=== PATIENT | male | born 1970 | race American Indian/Alaskan Native ===

== ENCOUNTER 2017-04-06 21:53 | Emergency (ER) | payer OTHER ==
--- NOTE | 2017-04-06 21:57 | EDM.PDOC ---
ED HPI GENERAL MEDICAL PROBLEM - General Stated Complaint: JEREMIAS JOHNSTON Time Seen by Provider: 04/06/17 21:53 Source of Information: Reports: Patient, RN Notes Reviewed History Limitations: Reports: No Limitations - History of Present Illness INITIAL COMMENTS - FREE TEXT/NARRATIVE: The patient's states that she and the patient were at a baseball game tonight. The patient went to his car around 18:00 MST. The patient's states that she detected him, but that he did not answer. She called on the telephone, and he answered with slurred speech. The patient's then went out to the car, and found him to be slurring his speech. She states that he was keeping his eyes closed. She drove him home. She states that he needed help to get inside the house secondary to apparent weakness. The patient is diabetic. His blood glucose was checked around 18:30 MST and found to be 220. The patient took his usual insulin. His blood glucose was rechecked around 20:15 MST, and found to be 243. The patient's states that the patient continue to keep his eyes closed, and continued to have slurred speech. At one point he became incoherent, babbling nonsense, therefore she tried to get him to get in their car, however, he became argumentative. She therefore called 911, and the patient was brought by EMS. The patient states "I had a seizure or something". He states that after he went to the car to smoke a cigarette. He developed double vision and difficulty speaking. He states that he did not lose consciousness. He states that he had a similar episode around 1993, following atraumatic brain injury. The patient states that he has a seizure disorder, and is prescribed Dilantin 300 mg TID, but only takes 300 mg QAM. He states that he has been doing this for the past couple of years. He states that he is under increased stress, but denies recent sleep deprivation or alcohol use. The patient is on Eliquis, and has an IVC filter for chronic DVT. - Related Data Allergies Allergy/AdvReac Type Severity Reaction Status Date / Time Penicillins Allergy Swelling Verified 04/06/17 22:11 Home Meds: Home Meds ARIPiprazole [Aripiprazole] 2 mg PO BID 04/06/17 [History] Apixaban [Eliquis] 2.5 mg PO BID 04/06/17 [History] Canagliflozin [Invokana] 300 mg PO DAILY 04/06/17 [History] Cholecalciferol (Vitamin D3) [Vitamin D3] 2,000 units PO DAILY 04/06/17 [History ] Ezetimibe 10 mg PO DAILY 04/06/17 [History] Phenytoin 300 mg PO TID 04/06/17 [History] Venlafaxine HCl [Venlafaxine ER] 150 mg PO DAILY 04/06/17 [History] metFORMIN HCl [Metformin HCl] 1,000 mg PO BID 04/06/17 [History] Past Medical History Cardiovascular History: Reports: High Cholesterol Neurological History: Reports: Brain Injury (1993, causing intracranial hemorrhage that required surgery) Psychiatric History: Reports: Depression Endocrine/Metabolic History: Reports: Diabetes, Type II Hematologic History: Reports: Other (See Below) (Chronic DVT) - Past Surgical History Head Surgeries/Procedures: Reports: Craniotomy (1993, left frontal, with lobectomy) Cardiovascular Surgical History: Reports: Other (See Below) (IVC filter) Social & Family History - Tobacco Use Years of Tobacco use: 33 Packs/Tins Daily: 0.5 - Alcohol Use Alcohol Use History: Yes Alcohol Use Frequency: Rarely - Recreational Drug Use Recreational Drug Use: Yes Drug Use in Last 12 Months: Yes Recreational Drug Type: Reports: Marijuana/Hashish (regularly) - Living Situation & Occupation Living situation: Reports: , with Spouse 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) ED ROS GENERAL - Review of Systems Review Of Systems: See Below Constitutional: Reports: No Symptoms HEENT: Reports: No Symptoms Respiratory: Reports: No Symptoms Cardiovascular: Reports: No Symptoms Endocrine: Reports: No Symptoms GI/Abdominal: Reports: No Symptoms : Reports: No Symptoms Musculoskeletal: Reports: No Symptoms Skin: Reports: No Symptoms Neurological: Reports: No Symptoms Psychiatric: Reports: No Symptoms Hematologic/Lymphatic: Reports: No Symptoms Immunologic: Reports: No Symptoms ED EXAM, NEURO - Physical Exam Exam: See Below Exam Limited By: No Limitations General Appearance: Alert, WD/WN, No Apparent Distress Eye Exam: Bilateral Eye: Normal Inspection Ears: Normal External Exam, Hearing Grossly Normal Nose: Normal Inspection, No Blood Throat/Mouth: Normal Inspection, Normal Lips, Normal Voice, No Airway Compromise Head Exam: Other (Left frontal scarring) Neck: Normal Inspection, Full Range of Motion Respiratory/Chest: No Respiratory Distress, No Accessory Muscle Use, Chest Non- Tender, Rhonchi (throughout) Cardiovascular: Normal Peripheral Pulses, Regular Rate, Rhythm, No Gallop, No JVD, No Murmur, No Rub GI/Abdominal: Normal Bowel Sounds, Soft, Non-Tender, No Organomegaly, No Distention, No Abnormal Bruit, No Mass (Male) Exam: Deferred Rectal (Males) Exam: Deferred Neurological: Alert, Normal Dorsiflexion, CN II-XII Intact, Normal Plantar Flexion, No Motor/Sensory Deficits, Oriented x 3 Back Exam: Normal Inspection, Full Range of Motion, NT Extremities: Normal Inspection, Normal Range of Motion, No Pedal Edema, Normal Capillary Refill Psychiatric: Normal Affect Skin Exam: Warm, Dry, Intact, Normal Color, No Rash EKG INTERPRETATION EKG Date: 04/06/17 Time: 22:04 Rhythm: NSR Rate (Beats/Min): 70 [place]: Normal P-Wave: Present QRS: Normal ST-T: Elevated (J-point elevation in inferior leads. No ischemic changes.) QT: Normal Comparison: NA - No Prior EKG Course - Vital Signs Last Recorded V/S: Last Vital Signs Temp 36.1 C 04/06/17 22:05 Pulse 77 04/06/17 22:05 Resp 25 H 04/06/17 22:05 BP 129/61 04/06/17 22:05 Pulse Ox 97 04/06/17 22:05 - Orders/Labs/Meds Orders: Active Orders 24 hr Category Date Time Status Accu Check [Blood Glucose Check, Bedside] [RC] ONETIME Care 04/06/17 22:14 Active EKG Documentation Completion [RC] STAT Care 04/06/17 22:13 Active Head wo Cont [CT] Stat Exams 04/06/17 21:55 Taken Labs: Laboratory Tests 04/06/17 04/06/17 04/06/17 Range/Units 22:04 22:04 22:04 WBC 8.07 (4.23-9.07) K/mm3 RBC 4.09 L (4.63-6.08) M/mm3 Hgb 12.2 L (13.7-17.5) gm/L Hct 36.5 L (40.1-51.0) % MCV 89.2 (79.0-92.2) fl MCH 29.8 (25.7-32.2) pg MCHC 33.4 (32.2-35.5) g/dl RDW Std Deviation 44.8 H (35.1-43.9) fL Plt Count 289 (163-337) K/mm3 MPV 9.5 (9.4-12.3) fl Neutrophils % (Manual) 64 H (40-60) % Band Neutrophils % 0 (0-10) % Lymphocytes % (Manual) 28 (20-40) % Atypical Lymphs % 0 % Monocytes % (Manual) 6 (2-10) % Eosinophils % (Manual) 2 (0.8-7.0) % Basophils % (Manual) 0 L (0.2-1.2) Platelet Estimate Adequate Plt Morphology Comment Normal RBC Morph Comment Normal PT 9.3 (8.0-13.0) SECONDS INR 0.86 APTT 24 (22-36) SECONDS Sodium 139 (136-145) mEq/L Potassium 4.2 (3.5-5.1) mEq/L Chloride 105 (98-107) mEq/L Carbon Dioxide 25 (21-32) mEq/L Anion Gap 13.2 (5-15) BUN 23 H (7-18) mg/dL Creatinine 0.9 (0.7-1.3) mg/dL Est Cr Clr Drug Dosing 102.52 mL/min Estimated GFR (MDRD) > 60 (>60) mL/min BUN/Creatinine Ratio 25.6 H (14-18) Glucose 171 H (74-106) mg/dL Calcium 9.6 (8.5-10.1) mg/dL Magnesium 2.0 (1.8-2.4) mg/dl Total Bilirubin 0.2 (0.2-1.0) mg/dL AST 13 L (15-37) U/L ALT 25 (16-63) U/L Alkaline Phosphatase 105 (46-116) U/L Creatine Kinase (39-308) U/L Troponin I < 0.017 (0.00-0.056) ng/mL Total Protein 6.3 L (6.4-8.2) g/dl Albumin 3.3 L (3.4-5.0) g/dl Globulin 3.0 gm/dL Albumin/Globulin Ratio 1.1 (1-2) TSH 3rd Generation 1.713 (0.358-3.74) uIU/mL Urine Opiates Screen (NEGATIVE) Ur Buprenorphine Scrn (NEGATIVE) Ur Oxycodone Screen (NEGATIVE) Urine Methadone Screen (NEGATIVE) Ur Propoxyphene Screen (NEGATIVE) Ur Barbiturates Screen (NEGATIVE) Phenytoin 1.8 L (10.0-20.0) ug/mL Ur Tricyclics Screen (NEGATIVE) Ur Phencyclidine Scrn (NEGATIVE) Ur Amphetamine Screen (NEGATIVE) U Methamphetamines Scrn (NEGATIVE) U Benzodiazepines Scrn (NEGATIVE) U Cocaine Metab Screen (NEGATIVE) U Marijuana (THC) Screen (NEGATIVE) Ethyl Alcohol 0.00 (0.00) gm% 04/06/17 04/06/17 Range/Units 22:04 22:30 WBC (4.23-9.07) K/mm3 RBC (4.63-6.08) M/mm3 Hgb (13.7-17.5) gm/L Hct (40.1-51.0) % MCV (79.0-92.2) fl MCH (25.7-32.2) pg MCHC (32.2-35.5) g/dl RDW Std Deviation (35.1-43.9) fL Plt Count (163-337) K/mm3 MPV (9.4-12.3) fl Neutrophils % (Manual) (40-60) % Band Neutrophils % (0-10) % Lymphocytes % (Manual) (20-40) % Atypical Lymphs % % Monocytes % (Manual) (2-10) % Eosinophils % (Manual) (0.8-7.0) % Basophils % (Manual) (0.2-1.2) Platelet Estimate Plt Morphology Comment RBC Morph Comment PT (8.0-13.0) SECONDS INR APTT (22-36) SECONDS Sodium (136-145) mEq/L Potassium (3.5-5.1) mEq/L Chloride (98-107) mEq/L Carbon Dioxide (21-32) mEq/L Anion Gap (5-15) BUN (7-18) mg/dL Creatinine (0.7-1.3) mg/dL Est Cr Clr Drug Dosing mL/min Estimated GFR (MDRD) (>60) mL/min BUN/Creatinine Ratio (14-18) Glucose (74-106) mg/dL Calcium (8.5-10.1) mg/dL Magnesium (1.8-2.4) mg/dl Total Bilirubin (0.2-1.0) mg/dL AST (15-37) U/L ALT (16-63) U/L Alkaline Phosphatase (46-116) U/L Creatine Kinase 52 (39-308) U/L Troponin I (0.00-0.056) ng/mL Total Protein (6.4-8.2) g/dl Albumin (3.4-5.0) g/dl Globulin gm/dL Albumin/Globulin Ratio (1-2) TSH 3rd Generation (0.358-3.74) uIU/mL Urine Opiates Screen Negative (NEGATIVE) Ur Buprenorphine Scrn Negative (NEGATIVE) Ur Oxycodone Screen Negative (NEGATIVE) Urine Methadone Screen Negative (NEGATIVE) Ur Propoxyphene Screen Negative (NEGATIVE) Ur Barbiturates Screen Presumptive positive H (NEGATIVE) Phenytoin (10.0-20.0) ug/mL Ur Tricyclics Screen Negative (NEGATIVE) Ur Phencyclidine Scrn Negative (NEGATIVE) Ur Amphetamine Screen Negative (NEGATIVE) U Methamphetamines Scrn Negative (NEGATIVE) U Benzodiazepines Scrn Negative (NEGATIVE) U Cocaine Metab Screen Negative (NEGATIVE) U Marijuana (THC) Screen Presumptive positive H (NEGATIVE) Ethyl Alcohol (0.00) gm% Meds: Medications Discontinued Medications Generic Name Dose Route Start Last Admin Trade Name Freq PRN Reason Stop Dose Admin Phenytoin Sodium 300 mg 04/06/17 23:29 Phenytoin PO 04/06/17 23:30 ONETIME STA - Re-Assessments/Exams Free Text/Narrative Re-Assessment/Exam: 04/06/17 22:26 CT of the head without contrast is read by virtual radiology as: 1. Encephalomalacia in the left frontal lobe compatible with the patient's history of head trauma. 2. Chronic sinus disease in the left ethmoid sinus. 3. No sign of acute stroke. 04/06/17 22:27 At present, the patient's neurologic examination is entirely normal. The patient believes that he suffered a seizure, and I am inclined to agree with him. Even if his symptoms were due to a TIA, his neurologic symptoms have entirely resolved, therefore a thrombolytic is not indicated. 04/06/17 23:43 Test results discussed with the patient and his . The patient's Dilantin level is subtherapeutic at 1.8. The remainder of his workup is unremarkable. As above, I suspect that the patient suffered a seizure. The patient has his medications, including his Dilantin, here in the ED. I will have him take 300 mg now, then start taking 300 mg TID, as prescribed, starting tomorrow morning. I do not see an indication to admit the patient to the hospital. The patient's asked what can be done if the patient has another seizure. I recommended that she not try to force anything into his mouth, and call 911 if he turns cyanotic, or if the seizure lasts beyond a few minutes. We discussed the option of prescribed Valium, however, the patient's is not comfortable with either injections or rectal dosing. Departure - Departure Time of Disposition: 23:45 Disposition: Home, Self-Care 01 Condition: Good Clinical Impression: Epileptic seizure - Discharge Information Instructions: Seizure, Adult, [id number] Referrals: PCP,None [Primary Care Provider] - Forms: ED Department Discharge Additional Instructions: You were seen in the emergency room after your speech became slurred. Workup in the ER included blood work, a urine drug screen, an ECG, and a CT scan of your head. Your Dilantin level returned very low at 1.8. A therapeutic level is between 10 and 20. This is because you are not taking your Dilantin as prescribed. You are SUPPOSED to take 3 tablets, 3 times a day. You have been taking 3 tablets only once a day. You were given a 300 mg dose in the ED. Start taking your Dilantin 3 tablets, 3 times a day, starting tomorrow, , 04/07/2016. We strongly recommend that you notify the office of Dr. Barron of your ER visit. If any other problems, please do not hesitate to return to the ER. - My Orders Last 24 Hours: My Active Orders 04/06/17 21:55 Head wo Cont [CT] Stat 04/06/17 22:13 EKG Documentation Completion [RC] STAT 04/06/17 22:14 Accu Check [Blood Glucose Check, Bedside] [RC] ONETIME - Assessment/Plan Last 24 Hours: My Active Orders 04/06/17 21:55 Head wo Cont [CT] Stat 04/06/17 22:13 EKG Documentation Completion [RC] STAT 04/06/17 22:14 Accu Check [Blood Glucose Check, Bedside] [RC] ONETIME
[2017-04-06] MEDS ORDERED: Phenytoin 100 MG Cap.ER PO STA (23:29)
--- NOTE | 2017-04-07 07:14 | CT ---
Head CT Technique: Multiple axial sections through the brain were obtained. Intravenous contrast was not utilized. Comparison: No previous intracranial imaging is available. Findings: Encephalomalacia is identified within the left frontal lobe. Dystrophic calcification is seen within this area with ex vacuole enlargement of the frontal horn of the lateral ventricle. Previous left-sided craniotomy is also noted. Other ventricles along with basal cisterns and sulci over the convexities are within normal limits. No other abnormal parenchymal densities are seen. No evidence of intracranial hemorrhage. No midline shift or mass effect is seen. Atherosclerotic calcification is noted within the carotid siphon. Mild mucosal thickening is noted within the ethmoid sinuses and left frontal sinus. Impression: 1. Encephalomalacia and other chronic findings within the left frontal region as described above. 2. Mild sinus findings which are likely pre-existing and incidental. 3. No acute intracranial abnormality is identified. Diagnostic code #3 Agree with preliminary report issued by [employer] ([employer] preliminary report dictated on 04/06/17, 11:18 PMCentral Time)
== END 2017-04-06 23:58 | disposition home or self-care (01) ==
LOC: JD.ED 21:53
DX: G40.909 Epilepsy, unspecified, not intractable, without status epilepticus (principal); E11.9 Type 2 diabetes mellitus without complications; Z88.0 Allergy status to penicillin; Z79.84 Long term (current) use of oral hypoglycemic drugs; Z79.899 Other long term (current) drug therapy; F17.210 Nicotine dependence, cigarettes, uncomplicated
CPT/HCPCS: 36415; 70450; 80053; 80185; 80306; 82550; 82962; 83735; 84443; 84484; 85025; 85610; 85730; 93005; 99285; G0480; 93010

== ENCOUNTER 2017-04-12 09:50 | Emergency (ER) | payer OTHER ==
--- NOTE | 2017-04-12 10:12 | EDM.PDOC ---
ED HPI GENERAL MEDICAL PROBLEM - General Chief Complaint: Neuro Symptoms/Deficits Stated Complaint: [facility] Time Seen by Provider: 04/12/17 10:00 Source of Information: Reports: Patient History Limitations: Reports: No Limitations - History of Present Illness INITIAL COMMENTS - FREE TEXT/NARRATIVE: 47-year-old male attends the ED per [facility] because of ataxia. He appreciates that his gait is off and he is listing towards the right side when walking. He states symptoms developed over a week ago and he was seen through the ED and worked up for stroke at that time. I do not have access to that chart at this time. He states symptoms seem to be worse the last 2 days but has been ataxic since she was seen last week. He denies any vertigo symptoms. He is also an insulin-dependent diabetic and blood sugars were identified by paramedics to be low this morning initial was 80 and it went down to as low as 40 he was given pretzels and dextrose orally and sugar is 90 on their last assessment before arriving in the ED. he does have a mild headache. There's been no nausea or vomiting. Onset: Gradual Onset Date: 04/05/17 (Symptoms started a week ago.) Duration: Day(s): Location: Reports: Generalized (Feeling off balance and walking like a drunk.) Quality: Reports: Other (Off balance with gait.) Severity: Moderate Improves with: Reports: None Worsens with: Reports: None Context: Denies: Activity, Exercise, Lifting, Sick Contact, Trauma, Other Associated Symptoms: Reports: Headaches, Malaise. Denies: Confusion, Chest Pain , Cough, cough w sputum, Diaphoresis (Perhaps a little more tired than normal.) , Fever/Chills, Loss of Appetite, Nausea/Vomiting, Rash, Seizure, Shortness of Breath, Syncope, Weakness Treatments [employer]: Reports: Other (see below) (1.) - Related Data Allergies Allergy/AdvReac Type Severity Reaction Status Date / Time Penicillins Allergy Swelling Verified 04/12/17 09:58 Home Meds: Home Meds ARIPiprazole [Aripiprazole] 2 mg PO BID 04/06/17 [History] Apixaban [Eliquis] 2.5 mg PO BID 04/06/17 [History] Canagliflozin [Invokana] 300 mg PO DAILY 04/06/17 [History] Cholecalciferol (Vitamin D3) [Vitamin D3] 2,000 units PO DAILY 04/06/17 [History ] Ezetimibe 10 mg PO DAILY 04/06/17 [History] Phenytoin 300 mg PO TID 04/06/17 [History] Venlafaxine HCl [Venlafaxine ER] 150 mg PO DAILY 04/06/17 [History] metFORMIN HCl [Metformin HCl] 1,000 mg PO BID 04/06/17 [History] Aspirin [Halfprin] 162 mg PO BRK #90 tab.ec 04/12/17 [Rx] Past Medical History Cardiovascular History: Reports: High Cholesterol Other Cardiovascular History: DVT Neurological History: Reports: Brain Injury (1993, causing intracranial hemorrhage that required surgery. Had a craniotomy for removal of the subdural.) , Head Trauma, Seizure (Patient has been on Dilantin for many years in spite of apparently never having a seizure post closed head injury and subdural drainage. 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 He is to be on warfarin and currently he is on Eliquis to 2.5 mg twice a day) - Past Surgical History Head Surgeries/Procedures: Reports: Craniotomy (1993, left frontal, with lobectomy) Cardiovascular Surgical History: Reports: Other (See Below) (IVC filter) Social & Family History - Tobacco Use Smoking Status *Q: Current Every Day Smoker Years of Tobacco use: 33 Packs/Tins Daily: 0.5 - Caffeine Use Caffeine Use: Reports: Energy Drinks Other Caffeine Use: 3 energy drinks per day - Recreational Drug Use Recreational Drug Use: Yes Drug Use in Last 12 Months: Yes Recreational Drug Type: Reports: Marijuana/Hashish (regularly) Other Recreational Drug Type: about once per week - Living Situation & Occupation Living situation: Reports: , with Spouse 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 Denies: Fever, Chills, Decreased Appetite, Weight Loss HEENT: Reports: No Symptoms. Denies: Vertigo Respiratory: Reports: No Symptoms Cardiovascular: Reports: No Symptoms Endocrine: Reports: Fatigue, Low Glucose (As had several low blood sugars recently.) GI/Abdominal: Reports: No Symptoms : Reports: Frequency Musculoskeletal: Reports: Neck Pain Skin: Reports: Bruising (Bruises easy. He is on Eliquis.) Neurological: Reports: Headache, Difficulty Walking (For the last week.), Gait Disturbance. Denies: Confusion, Dizziness, Numbness, Paresthesia, Pre-Existing Deficit, Seizure, Syncope, Tingling (Mild), Tremors, Trouble Speaking, Weakness , Other Psychiatric: Reports: No Symptoms (Walks offkilter lists to the right side) Hematologic/Lymphatic: Reports: No Symptoms Immunologic: Reports: No Symptoms ED EXAM, NEURO - Physical Exam Exam: See Below Exam Limited By: No Limitations General Appearance: Alert, WD/WN, No Apparent Distress, Other (Able to provide a useful history.) Eye Exam: Bilateral Eye: Normal Fundi, Normal Inspection, PERRL (No nystagmus.) Ears: Normal External Exam Nose: Normal Inspection Throat/Mouth: Normal Inspection, Normal Lips, Normal Teeth Head Exam: Atraumatic, Other (Palpable defect left frontal temporal lobe from previous craniotomy. Has a scar in his left mid forehead from previous trauma.) Neck: Normal Inspection, Supple, Non-Tender, Full Range of Motion. No: Lymphadenopathy (L), Lymphadenopathy (R) Respiratory/Chest: No Respiratory Distress, Lungs Clear, Normal Breath Sounds, No Accessory Muscle Use Cardiovascular: Normal Peripheral Pulses, Regular Rate, Rhythm, No Edema, No Gallop, No Murmur, No Rub GI/Abdominal: Normal Bowel Sounds, Soft, Non-Tender, No Organomegaly (Male) Exam: No Hernia Neurological: Alert, Normal Mood/Affect, Normal Dorsiflexion, CN II-XII Intact, Normal Plantar Flexion, Oriented x 3, Other (Patient is definitely ataxic on walking he's lists towards the right side substantially. He had a negative Romberg sign. There was no pronator drift. He is slightly ataxic on heel-to- wilson assessment on the left side.). No: Normal Gait, Normal Reflexes, Abnormal Finger to Nose, Abnormal Light Touch, Abnormal Motor, Babinski, Straight Leg Raise (L) DTR: 0: Patella (R), Patella (L), Achilles (R), Achilles (L), 1+: Bicep (R), Bicep (L) Back Exam: Normal Inspection, Full Range of Motion. No: CVA Tenderness (L), CVA Tenderness (R) Extremities: Normal Inspection, Normal Range of Motion, Non-Tender, No Pedal Edema Psychiatric: Normal Affect, Normal Mood Skin Exam: Warm, Dry, Intact, Normal Color, No Rash EKG INTERPRETATION EKG Date: 04/12/17 Time: 10:15 Rhythm: NSR Rate (Beats/Min): 70 Voca: RAD-Right Voca Deviation (Borderline right axis deviation) P-Wave: Present QRS: Other (There is Q waves V1 to V3 compatible with an old anteroseptal myocardial infarction. There are also Q waves in 3 and aVF suggesting an old inferior wall myocardial infarction.) ST-T: Other (T-wave inversion aVL which is nonspecific.) QT: Prolonged (QT is mildly prolonged.) EKG Interpretation Comments: Abnormal ECG Course - Vital Signs Last Recorded V/S: Last Vital Signs Temp 36.1 C 04/12/17 10:00 Pulse 68 04/12/17 10:00 Resp 18 04/12/17 10:00 BP 129/65 04/12/17 10:00 Pulse Ox 99 04/12/17 10:00 - Orders/Labs/Meds Labs: Laboratory Tests 04/12/17 04/12/17 04/12/17 Range/Units 09:55 09:55 09:55 WBC 7.35 (4.23-9.07) K/mm3 RBC 4.35 L (4.63-6.08) M/mm3 Hgb 13.0 L (13.7-17.5) gm/L Hct 38.6 L (40.1-51.0) % MCV 88.7 (79.0-92.2) fl MCH 29.9 (25.7-32.2) pg MCHC 33.7 (32.2-35.5) g/dl RDW Std Deviation 44.4 H (35.1-43.9) fL Plt Count 308 (163-337) K/mm3 MPV 9.2 L (9.4-12.3) fl Neutrophils % (Manual) 66 H (40-60) % Band Neutrophils % 0 (0-10) % Lymphocytes % (Manual) 31 (20-40) % Atypical Lymphs % 0 % Monocytes % (Manual) 2 (2-10) % Eosinophils % (Manual) 1 (0.8-7.0) % Basophils % (Manual) 0 L (0.2-1.2) Platelet Estimate Decreased RBC Morph Comment Normal PT 10.0 (8.0-13.0) SECONDS INR 0.92 APTT (22-36) SECONDS Sodium 138 (136-145) mEq/L Potassium 3.9 (3.5-5.1) mEq/L Chloride 104 (98-107) mEq/L Carbon Dioxide 24 (21-32) mEq/L Anion Gap 13.9 (5-15) BUN 12 (7-18) mg/dL Creatinine 0.7 (0.7-1.3) mg/dL Est Cr Clr Drug Dosing TNP Estimated GFR (MDRD) > 60 (>60) mL/min BUN/Creatinine Ratio 17.1 (14-18) Glucose 95 (74-106) mg/dL Calcium 9.3 (8.5-10.1) mg/dL Total Bilirubin 0.2 (0.2-1.0) mg/dL AST 13 L (15-37) U/L ALT 21 (16-63) U/L Alkaline Phosphatase 121 H (46-116) U/L Troponin I < 0.017 (0.00-0.056) ng/mL C-Reactive Protein 3.4 H* (<1.0) mg/dL Total Protein 6.6 (6.4-8.2) g/dl Albumin 3.5 (3.4-5.0) g/dl Globulin 3.1 gm/dL Albumin/Globulin Ratio 1.1 (1-2) Urine Color (Yellow) Urine Appearance (Clear) Urine pH (5.0-8.0) Ur Specific Edwards (1.005-1.030) Urine Protein (Negative) Urine Glucose (UA) (Negative) Urine Ketones (Negative) Urine Occult Blood (Negative) Urine Nitrite (Negative) Urine Bilirubin (Negative) Urine Urobilinogen (0.2-1.0) Ur Leukocyte Esterase (Negative) Urine RBC (0-5) /hpf Urine WBC (0-5) /hpf Ur Epithelial Cells (0-5) /hpf Urine Bacteria (FEW) /hpf Urine Mucus (FEW) /hpf Phenytoin (10.0-20.0) ug/mL 04/12/17 04/12/17 04/12/17 Range/Units 09:55 09:55 12:15 WBC (4.23-9.07) K/mm3 RBC (4.63-6.08) M/mm3 Hgb (13.7-17.5) gm/L Hct (40.1-51.0) % MCV (79.0-92.2) fl MCH (25.7-32.2) pg MCHC (32.2-35.5) g/dl RDW Std Deviation (35.1-43.9) fL Plt Count (163-337) K/mm3 MPV (9.4-12.3) fl Neutrophils % (Manual) (40-60) % Band Neutrophils % (0-10) % Lymphocytes % (Manual) (20-40) % Atypical Lymphs % % Monocytes % (Manual) (2-10) % Eosinophils % (Manual) (0.8-7.0) % Basophils % (Manual) (0.2-1.2) Platelet Estimate RBC Morph Comment PT (8.0-13.0) SECONDS INR APTT 27 (22-36) SECONDS Sodium (136-145) mEq/L Potassium (3.5-5.1) mEq/L Chloride (98-107) mEq/L Carbon Dioxide (21-32) mEq/L Anion Gap (5-15) BUN (7-18) mg/dL Creatinine (0.7-1.3) mg/dL Est Cr Clr Drug Dosing Estimated GFR (MDRD) (>60) mL/min BUN/Creatinine Ratio (14-18) Glucose (74-106) mg/dL Calcium (8.5-10.1) mg/dL Total Bilirubin (0.2-1.0) mg/dL AST (15-37) U/L ALT (16-63) U/L Alkaline Phosphatase (46-116) U/L Troponin I (0.00-0.056) ng/mL C-Reactive Protein (<1.0) mg/dL Total Protein (6.4-8.2) g/dl Albumin (3.4-5.0) g/dl Globulin gm/dL Albumin/Globulin Ratio (1-2) Urine Color Yellow (Yellow) Urine Appearance Clear (Clear) Urine pH 6.0 (5.0-8.0) Ur Specific Edwards 1.025 (1.005-1.030) Urine Protein Negative (Negative) Urine Glucose (UA) 2+ H (Negative) Urine Ketones 1+ H (Negative) Urine Occult Blood Trace-lysed H (Negative) Urine Nitrite Negative (Negative) Urine Bilirubin 1+ H (Negative) Urine Urobilinogen 0.2 (0.2-1.0) Ur Leukocyte Esterase Negative (Negative) Urine RBC 0-5 (0-5) /hpf Urine WBC 0-5 (0-5) /hpf Ur Epithelial Cells 0-5 (0-5) /hpf Urine Bacteria Rare (FEW) /hpf Urine Mucus Few (FEW) /hpf Phenytoin 3.8 L (10.0-20.0) ug/mL Meds: Medications Discontinued Medications Generic Name Dose Route Start Last Admin Trade Name Freq PRN Reason Stop Dose Admin Aspirin 162 mg 04/12/17 12:44 04/12/17 13:02 Halfprin PO 04/12/17 12:45 Not Given ONETIME ONE Aspirin Confirm 04/12/17 12:57 04/12/17 13:02 Aspirin Administered 04/12/17 12:58 Not Given Dose 162 mg .ROUTE .STK-MED ONE Aspirin 162 mg 04/12/17 12:58 04/12/17 13:01 Aspirin PO 04/12/17 12:59 162 mg ONETIME ONE Administration Dextrose/Sodium Chloride 1,000 mls @ 100 mls/hr 04/12/17 10:30 04/12/17 10:34 Dextrose 5%-Normal Saline IV 100 mls/hr ASDIRECTED KAM Administration - Radiology Interpretation Free Text/Narrative:: 47-year-old male presents to the ED per ambulance from [facility]. Patient states that he is off balance when he tries to walk. He has no vertigo symptoms but when he attempts to walk he is staggering and lists towards the right side. He' s banging into jimenez and door jams etc. Symptoms started a week ago when he was seen and assessed in the ED and worked up for stroke with a negative CT. States his symptoms of gradually worsened over the last week and were much worse this morning. This is complicated by the fact that he also had a low blood sugar this morning. He is an insulin-dependent diabetic for many years. He did take his insulin this morning without checking his blood sugar today begin with. Paramedics identified initial blood sugar of 80 and then it went down to as low as 40 on recheck. He was given pretzels and glucose orally. Last blood sugar before they entered the ED was 90. He has taken his morning dose of insulin 25 units but has not had breakfast yet. His neuro exam otherwise is completely normal with mild left-sided [id number] ataxia but marked ataxia when we try to get him up and walk. He is staggering listing to the right side. - Re-Assessments/Exams Free Text/Narrative Re-Assessment/Exam: 04/12/17 10:53 CT head is reported as unchanged from last week. He has encephalomalacia within the left frontal lobe with dystrophic calcification in this area. Findings appear chronic as there is an ex vacuo enlargement of the frontal horn of the lateral ventricle on that side prior left-sided craniotomy is appreciated. There is no evidence of intracranial hemorrhage or mass effect or any midline shift. There is atherosclerotic sedation patient was in the carotid siphon. Mucosal thickening is noted within portions of the ethmoid sinuses which appears chronic. 04/12/17 11:20 patient this time is feeling much improved. He's ready to go home. I have ordered an MRI which will be done about 11:30 this morning to establish for for sure whether or not he has had a cerebellar infarct is clinically this is what it suggests. It's unclear how much Dilantin is taking but it sounds likes up to 600 mg a day and this could be causing some Dilantin toxicity and contributing to ataxia and therefore I did order serum Dilantin level. 04/12/17 11:22 Labs reveal a normal white count at 7.35. Hemoglobin is 13.0 with hematocrit of 38.6. Platelet count is 308,000. PT is 10.0 INR 0.92. PTT is 27. Sodium is 138 potassium 3.9. Chloride 104 bicarbonate 24. And a gap is 13.9 BUN is 12. Creatinine is 0.7. His EGFR is greater than 60. Glucose was 95 in the lab calcium 9.3 AST is 13 ALT 21 alk phosphatase slightly elevated at 121. Troponin I is less than 0.017. C-reactive protein is 3.4. The reason for this is unclear I therefore ordered a chest x-ray and a urinalysis. 04/12/17 11:39 chest x-ray reveals a elevated right lateral leaflet of the diaphragm likely due to paralysis. Visualized portions the lungs appear to be within normal limits. 04/12/17 12:06 Dilantin level is 3.8 which is subtherapeutic and therefore not the cause of any ataxia. 04/12/17 12:47 MRI of his brain reveals an acute diffusion abnormality in the left side of the flip which would correlate with his symptoms of ataxia. This appears to be a recent infarct. The flip is supplied by very small vessels and is therefore not indicative of a very macrovascular problem but more microvascular related to his diabetes. Patient feels much improved although his ataxia symptoms are likely to persist and perhaps mildly improve over the next several weeks. Himself and 2 of his family members who are with him were counseled in regards to the findings. He wants to leave the hospital as quickly as possible and was not interested in any form of rehabilitation or physiotherapy mostly because of where he lives. I spoke with neurologist on- call at [facility] in [facility] and he agreed that even if the patient is on aliquots as he could tolerate low-dose aspirin as well in an effort to prevent further infarction. However further investigations were not felt to be warranted. At this time I will place him on Halfprin 162 mg once daily. Departure - Departure Time of Disposition: 12:44 Disposition: Home, Self-Care 01 Condition: Fair Clinical Impression: CVA, old, ataxia, Brainstem infarction - Discharge Information Prescriptions: Aspirin [Halfprin] 162 mg PO BRK #90 tab.ec Instructions: Stroke Prevention, [id number] Referrals: PCP,None [Primary Care Provider] - Forms: ED Department Discharge Additional Instructions: Evaluation the emergency room today in regards to continued feeling of being off balance with staggering gait to the right side with walking. Symptoms have been present for the last week. Clinically her neuro exam was otherwise normal other than slight ataxia on left [id number] exam. CT scan of the brain was unchanged as compared to the examination that was done a week ago. Therefore MRI of the brain was carried out and it confirms that there is been a stroke involving the brainstem called the flip on the left side. This appears to be fairly recent which would be within the last week. This is a small vessel infarct and is likely secondary to your diabetes over the years. The only treatment we have to offer for this is to be on a aspirin and I would suggest Halfprin which is aspirin 162 mg daily. This will hopefully prevent further strokes from occurring. You do need further investigations carried out with your doctor with ultrasound of your carotid arteries echocardiogram of your heart and probably MRA or CTA to look at the blood vessels in the head and neck to see if there is anything else that we can do to prevent a major stroke from occurring in the future. Follow-up with her personal care physician within the next week.
--- NOTE | 2017-04-12 10:26 | CT ---
Head CT Technique: Multiple axial sections through the brain were obtained. Intravenous contrast was not utilized. Comparison: Prior head CT exam of 04/06/17. Findings: Encephalomalacia is seen within the left frontal lobe. Dystrophic calcification is seen in this area. Finding appears chronic as there is ex vacuole enlargement of the frontal horn of the lateral ventricle. Prior left-sided craniotomy is noted. No other abnormal parenchymal densities are seen. No evidence of intracranial hemorrhage. No midline shift or mass effect is seen. Atherosclerotic calcification is seen within the carotid siphon. Mucosal thickening is noted within portions of the ethmoid sinuses. No acute calvarial abnormality is seen. Impression: 1. Chronic change within the left frontal lobe as described above. 2. Sinus disease which is stable from previous head CT and felt to be chronic. 3. Nothing acute is appreciated. No appreciable change from prior head CT exam. Please correlate if patient's symptoms warrant further evaluation by MRI. Diagnostic code #3
[2017-04-12] MEDS ORDERED: Dextrose 5%-0.9% NaCl 1,000 ML IV SCH (10:30)
--- NOTE | 2017-04-12 12:24 | MR ---
MRI brain Technique: T1 sagittal; T2, T2 FLAIR, diffusion and T1 axial Comparison: Previous head CT study performed earlier on the same day. Findings: Stable encephalomalacia within the left frontal lobe with ex vacuole enlargement of the frontal horn of the lateral left ventricle. Mucosal thickening is again seen within the ethmoid sinuses. Minimal increased signal is seen within the periventricular white matter within the frontal region. Mild areas of increased signal are seen within the flip. Area of increased signal within the flip correlates to acute diffusion abnormalities compatible with fairly recent small infarcts. No other acute diffusion abnormalities are seen. No midline shift or mass effect is seen. Impression: 1. Areas of acute diffusion abnormality within the flip more prominent on the left side. These correlate to mild areas of increased signal on the T2 FLAIR sequence and are felt compatible with fairly recent brainstem infarcts. 2. Stable area of encephalomalacia within the left frontal region and other incidental findings which are stable. Diagnostic code #3
[2017-04-12] MEDS ORDERED: Aspirin 81 MG Tab.EC PO ONE (12:44)
[2017-04-12] MEDS ORDERED: Aspirin 81 MG Tab.Chew ONE (12:57)
[2017-04-12] MEDS ORDERED: Aspirin 81 MG Tab.Chew PO ONE (12:58)
--- NOTE | 2017-04-12 14:02 | CR ---
Chest: Portable view of the chest was obtained. Comparison: No prior chest x-ray. Pleural thickening is seen along the right lower chest and right costophrenic angle which is most likely chronic. Lungs otherwise are clear. Heart size and mediastinum are normal. Several old right-sided rib fractures are seen which appear healed. Old left clavicle fracture is seen which is healed. Old fracture noted within the right scapula. Impression: 1. Pleural thickening which is felt to be chronic within the right lower chest and lateral costophrenic angle. This occurs in an area of old healed rib fractures. Other old fractures as noted above. 2. Nothing acute is appreciated on frontal chest x-ray. Diagnostic code #2
== END 2017-04-12 13:03 | disposition home or self-care (01) ==
LOC: JD.ED 09:50
DX: R27.0 Ataxia, unspecified (principal); E11.9 Type 2 diabetes mellitus without complications; F17.210 Nicotine dependence, cigarettes, uncomplicated; E78.00 Pure hypercholesterolemia, unspecified; Z88.0 Allergy status to penicillin; Z79.899 Other long term (current) drug therapy; Z79.82 Long term (current) use of aspirin; Z79.84 Long term (current) use of oral hypoglycemic drugs; Z86.73 Personal history of transient ischemic attack (TIA), and cerebral infarction without residual deficits
CPT/HCPCS: 36415; 70450; 70551; 71010; 80053; 80185; 81001; 84484; 85025; 85610; 85730; 86140; 93005; 96360; 96361; 99285; A9270; J7042; 93010; 99283-25

== ENCOUNTER 2017-05-01 11:56 | Emergency (ER) | payer OTHER ==
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
[2017-05-01] MEDS ORDERED: Sodium Chloride 0.9% 1,000 ML IV SCH (12:30)
[2017-05-01] MEDS ORDERED: Midazolam 1 MG/ML 2 ML SDV IM ONE (15:12)
--- NOTE | 2017-05-01 16:06 | CT ---
Head CT Technique: Multiple axial sections through the brain were obtained. Intravenous contrast was not utilized. Comparison: Prior MRI brain dated 04/12/[address] study dated 04/12/17. Findings: Area of encephalomalacia is seen within the left frontal lobe which appears stable. Dystrophic calcification is seen which is stable. No other abnormal parenchymal densities are seen. No evidence of intracranial hemorrhage. Ex vacuole enlargement is noted of the lateral ventricle within the left frontal horn. No midline shift is seen. Previous craniotomy is noted. Atherosclerotic calcification is seen within the vertebral vessels and carotid siphon. Mucosal thickening is noted within the ethmoid and frontal sinus on both sides. No acute calvarial abnormality is seen. Impression: 1. Findings as noted above. No significant change is seen from prior intracranial imaging. Diagnostic code #3
== END 2017-05-01 16:50 ==
LOC: JD.ED 11:56
DX: I69.993 Ataxia following unspecified cerebrovascular disease (principal); N39.42 Incontinence without sensory awareness; E78.00 Pure hypercholesterolemia, unspecified; E11.9 Type 2 diabetes mellitus without complications; F17.210 Nicotine dependence, cigarettes, uncomplicated; Z88.0 Allergy status to penicillin; Z79.899 Other long term (current) drug therapy; Z79.84 Long term (current) use of oral hypoglycemic drugs; Z79.82 Long term (current) use of aspirin
CPT/HCPCS: 36415; 70450; 80053; 80185; 80306; 82962; 85025; 86140; 96360; 96361; 99285; G0480; J7040; 99284